=== PATIENT | female | born 1980 | race African-American/Black ===

== ENCOUNTER 2019-03-20 06:15 | Emergency (ER) | payer BC, OTHER ==
[~2019-03-20] VITALS: Ht 165.1 cm; Wt 127.0 kg
[2019-03-20 07:59] VITALS: BP 159/87
[2019-03-20] MEDS ORDERED: KETOROLAC TROMETH 60MG/2ML VIAL IM ONE (08:15)
== END 2019-03-20 08:31 | disposition home or self-care (01) ==
LOC: ER 06:27
DX: S93.402A Sprain of unspecified ligament of left ankle, initial encounter (principal); S93.401A Sprain of unspecified ligament of right ankle, initial encounter; I10 Essential (primary) hypertension; Z90.89 Acquired absence of other organs; Z98.51 Tubal ligation status; W19.XXXA Unspecified fall, initial encounter; Y93.89 Activity, other specified; Y99.8 Other external cause status; Y92.89 Other specified places as the place of occurrence of the external cause
CPT/HCPCS: 73610; 99283; J1885